=== PATIENT | female | born 1980 | race Hispanic/Latino ===

== ENCOUNTER 2019-08-22 15:48 | Emergency (ER) | payer MEDICAID, OTHER ==
[2019-08-22] MEDS ORDERED: IPRATROPIUM/ALBUTEROL SULFATE 3 ML SOLUTION IH ONE (17:11)
[2019-08-22] MEDS ORDERED: METHYLPREDNISOLONE SOD SUCC 125MG/2ML VIAL ONE (17:18)
== END 2019-08-22 17:43 | disposition home or self-care (01) ==
LOC: EDH 15:48
DX: J45.901 Unspecified asthma with (acute) exacerbation (principal); Z90.49 Acquired absence of other specified parts of digestive tract; Z98.890 Other specified postprocedural states; Z72.0 Tobacco use
CPT/HCPCS: 71046; 81025; 93005; 94640 ×2; 96372; 99285; J2930

== ENCOUNTER → 2023-02-22 | Outpatient (CLI) | payer BC ==
[2023-02-22 12:44] LABS: CREATININE 0.6 mg/dL (0.5-1.5); POTASSIUM 4.4 mmol/L (3.5-5.1)
== END | disposition home or self-care (01) ==
LOC: LAB 08:46
PROVIDERS: ATTEND Internal Medicine Cardiovascular Disease
DX: I50.21 Acute systolic (congestive) heart failure (principal)
CPT/HCPCS: 36415; 80048; 83880

== ENCOUNTER 2024-08-03 21:30 | Emergency (ER) | payer BC ==
[~2024-08-03] VITALS: Ht 160 cm; Wt 72.6 kg
--- NOTE | 2024-08-03 22:13 | ERN ---
ED Note History of Present Illness Stated Complaint: RIGHT FOOT PAIN Chief Complaint: FOOT INJURY/PAIN Time Seen by MD: 21:51 Dictation: This is a 44-year-old female who presented to the emergency room complaining of right foot pain. Apparently a board fell on her right foot and the pain has persisted and hence she came into the ER for further evaluation she still able to to walk and ambulate without problems but with a limp No fever chills or rigors no known history of gout. Temperature 98.5 pulse 75 respirations 20 blood pressure 141/95 with a pulse oximetry of 98% on room air Her chronic medical problems include diabetes mellitus and coronary artery dis ease status post stents Allergies: Coded Allergies: No Known Drug Allergies (Unverified Allergy, Unknown, 08/04/24) Home Meds Active Scripts Naproxen (Naprosyn) 500 Mg Tablet, 500 MG PO BIDPC for 10 Days, #20 TAB 0 Re fills Prov:WANDA CUTLER MD 08/03/24 Past Medical History Past Medical History: CAD, Diabetes-Type II Surgical History: Other Surgical History Other: CARDIAC STENTS Family History: Negative Social History: Negative RN Note Reviewed/Agreed w/PFSH: Yes Review of System Dictation Constitutional: Negative for fever,chills, and weight loss Eyes: Negative for injury, pain,redness, and discharge ENT: Negative for injury,pain or swelling Cardiovascular: Negative for chest pain, palpitations, and edema Respiratory: Negative for shortness of breath, cough, and wheezing, Abdomen/GI: Negative for abdominal pain, nausea, vomiting, diarrhea, and constipation Back: Negative for injury and pain : Negative for injury, bleeding and discharge MS/Extremity: Positive for injury right foot Skin: Negative for rash, and discoloration Neuro: Negative for headache, weakness, numbness, tingling, and seizure Psych: Negative for suicide ideation, homicidal ideation, and hallucinations Initial Vital Sign VS Vital Signs Date Time Temp Pulse Resp B/P (MAP) Pulse Ox O2 Delivery O2 Flow Rate FiO2 08/03/24 21:51 98.4 75 20 141/95 98 Room Air 08/04/24 00:15 0 21 Physical Exam Dictation General: awake, alert, NAD Head/Face: Normocephalic, atraumatic Eyes: PERRL, EOMI, vision at baseline ENT: oral cavity clear, TMs clear, no signs of infection Neck: Trachea midline, supple, no nuchal rigidity Cardiovascular: RRR, normal S1/S2, No MRGs, no JVD Respiratory: CTAB, no respiratory distress, No rales or wheezes Abdomen: Soft, non-tender, non-distended, normal bowel sounds, no guarding or rebound. Skin: Warm, dry, normal turgor, no rash MS/Extremity: Pulses equal, no cyanosis, neurovascular intact, FROM Neuro: COAx4, GCS 15, strength 5/5, CN 2-12 intact, normal cerebellar exam, normal gait, Psych: Normal behavior, mood, and affect normal Extremities-trace edema without any palpable cords, Homans sign is negative Results (Laboratory/Radiology) Labs Reviewed?: Yes ED Course ED Course Orders Procedure Category Date Status Time Foot Comp 3+Vws Rt RAD 08/03/24 Taken 22:10 Ketorolac PHA 08/03/24 Complete Tromethamine 30mg/Ml 23:30 Ankle Stirrup Splint [email or web address] 08/03/24 In Process 23:20 Current Medications Medications (Trade) Dose Ordered Sig/Dipti Route PRN Reason Start Time Stop Time Status Last Admin Dose Admin Ketorolac Tromethamine (toRADol) 30 mg ONCE ONCE IM 08/03/24 23:30 08/03/24 23:31 DC 08/04/24 00:23 Vital Signs Date Time Temp Pulse Resp B/P (MAP) Pulse Ox O2 Delivery O2 Flow Rate FiO2 08/04/24 00:15 78 18 126/65 98 Room Air* 0 21 08/03/24 21:51 98.4 75 20 141/95 98 Room Air We will perform imaging and administer medications according to the patient's complaint. Once the results are available, will review and personally interpreted the labs to rule out any acute life-threatening emergency the trach require immediate intervention and treatment. I will then re-evaluate the patient after treatment and diagnostic exams have return to determine whether the patient requires any further testing, can safely be discharged home or need further admission to hospital for additional treatment and evaluation. Reviewed x-ray of the foot-I did not see any obvious displaced fracture final radiology report is pending Trial of Toradol, ankle splint and discharged to see Orthopedics for weight- bearing and details. Medical Decision Making MDM MDM: Differential diagnosis: Blunt injury to the right foot-hairline fracture, contusion, gout Rationale: Tests considered and ordered secondary to shared decision making include: Previous outside records reviewed: Old ER visits. Risk of complication and/or morbidity or mortality of patient management: None Medications-Per medication reconciliation Need for hospitalization: Patient does not meet criteria for hospitalization. Need for emergency major/minor surgery: No There are no social concerns with this patient. Prescription drug management Prescriptions will include symptomatic care Patient's prior external medical records from other ER visits were reviewed by me as indicated. Prior testing and results from previous visits were reviewed. Prior tests were taken into account with medical decision making and resource utilization, independent historian/historians were used to obtain complete medical history. I independently interpreted the test that were performed, results were reviewed by me and considered findings on radiology if ordered. Medical management and examination interpretation discussions were had by me with other qualified healthcare professionals as indicated for the patient's care. Problem List Problem List: (1) Right foot injury (2) Right foot pain DX & DISP Disposition: Discharge Departure Impression: Primary Impression: Right foot injury Additional Impression: Right foot pain Condition: Stable Scripts Naproxen (Naprosyn) 500 Mg Tablet 500 MG PO BIDPC for 10 Days, #20 TAB 0 Refills Prov: WANDA CUTLER MD 08/03/24 Additional Instructions: Patient and the caregiver have been informed of all the diagnostic tests and the imaging conducted during the today's visit to the emergency room and has verbalized understanding of the results I have personally reviewed and interpreted all diagnostic exams performed here in the ER today as well as the vital signs documented by the nursing staff. The patient is now being discharg ed to home and should follow up with the primary care physician or the specialist as directed by the ER staff. Follow-up with primary care provider in 1 to 2 days. Take medications as directed here in the emergency room. Okay to continue home medications unless otherwise discussed during your visit in the emergency room today. Return to your nearest emergency room if symptoms worsen or if there is no improvement. Call 911 if you need immediate assistance. Take Tylenol or Motrin [id number] as needed and if no contraindications are present. Increase oral hydration. A wound culture or urine culture was ordered here in the emergency room department please follow-up with primary care provider and advise them to get repeat ports from our facility. If you had any Nick wrap/splints that were applied here, please do not remove them until you see your primary care or specialty. to f/u with orthopedics for further mx Referrals: LOR BILLINGSLEY MD (PCP) BRIAN HERNANDEZ MD, ANURADHA R MD Aug 03, 2024 22:13
[2024-08-03] MEDS ORDERED: NAPR-1180 PO (23:22)
[2024-08-04] MEDS: ketOROlac 30MG VIAL (30MG/ML) IM ONE (00:23)
[2024-08-04 01:05] VITALS: BP 122/68; PULSE 78; RESP 18; TEMP 98.4; O2SAT 98
--- NOTE | 2024-08-04 01:05 | NUR ---
SPLINT APPLIED TO RIGHT FOOT. CRUTCHES GIVEN TO PT WITH SUCCESFUL RETURN DEMONSTRATION
--- NOTE | 2024-08-04 09:34 | HMCIMG ---
Exam Type: FOOT COMP 3+VWS RT Clinical Information: board fell on right foot 2 weeks ago Comparison: None Findings: The examination is unremarkable except for calcaneal spurs. No fractures or dislocations are seen. No radiopaque foreign bodies are noted. Soft tissues are preserved. IMPRESSION: Calcaneal spurs.
== END 2024-08-04 01:04 | disposition home or self-care (01) ==
LOC: EDH 21:30
DX: S99.921A Unspecified injury of right foot, initial encounter (principal); E11.9 Type 2 diabetes mellitus without complications; I25.10 Atherosclerotic heart disease of native coronary artery without angina pectoris; Z95.5 Presence of coronary angioplasty implant and graft; W22.8XXA Striking against or struck by other objects, initial encounter; Y93.89 Activity, other specified; Y92.89 Other specified places as the place of occurrence of the external cause; Y99.8 Other external cause status
CPT/HCPCS: 99284; 73630; 29515; 96372; J1885